=== PATIENT | male | born 1940 | race Two or more races ===

== ENCOUNTER 2021-03-10 08:00 | Outpatient (CLI) | payer OTHER | END 2021-03-10 08:30 | disposition home or self-care (01) | LOC: PPH VACUNA 08:00 | DX: Z23 Encounter for immunization (principal) ==

== ENCOUNTER 2021-10-16 08:00 | Outpatient (CLI) | payer OTHER | END 2021-10-16 08:30 | disposition home or self-care (01) | LOC: PPH VACUNA 08:00 | PROVIDERS: ATTEND Emergency Medicine Pediatric Emergency Medicine | DX: Z23 Encounter for immunization (principal) ==

== ENCOUNTER 2022-03-27 12:26 | Outpatient (CLI) | payer OTHER | END 2022-03-27 12:36 | disposition home or self-care (01) | LOC: PPH VACUNA 12:26 | PROVIDERS: ATTEND Emergency Medicine Pediatric Emergency Medicine | DX: Z23 Encounter for immunization (principal) ==

== ENCOUNTER 2023-06-15 19:42 | Inpatient (IN) | payer OTHER ==
[~2023-06-15] VITALS: Ht 172.7 cm; Wt 96.2 kg
[2023-06-15] MEDS ORDERED: ATORVASTATIN CA80 MG (20:10)
[2023-06-15] MEDS ORDERED: ZETIA10 MG (20:10)
[2023-06-15] MEDS ORDERED: ZESTRIL20 MG (20:10)
[2023-06-15] MEDS ORDERED: METFORMIN HCL500 M3 (20:10)
[2023-06-15] MEDS ORDERED: RYBELSUS3 MG (20:10)
[2023-06-15] MEDS ORDERED: PLAVIX75 MG (20:10)
[2023-06-15] MEDS ORDERED: CLONAZEPAM0.5 MG (20:11)
[2023-06-15] MEDS ORDERED: ASA81 MG (20:11)
[2023-06-15 20:40] LABS: HEMATOCRIT 37.9 % (39.0-48.0); HEMOGLOBIN 12.7 g/dL (13-16.00); MEAN CELL VOLUME 91.8 fL (80.0-100.00); MEAN CORPUSCULAR HEMOGLOBIN 30.8 pg (27.00-32.0); MEAN CORPUSCULAR HGB CONC 33.6 g/dl (32.0-36.0); PLATELET COUNT 346 K/uL (150-450); RED BLOOD COUNT 4.12 M/uL (4.00-6.00); RED CELL DISTRIBUTION WIDTH 13.9 % (11.5-14.5)
[2023-06-15 21:00] LABS: ALBUMIN 3.6 gm/dL (3.4-5.0); BILIRUBIN TOTAL 0.71 mg/dL (0.3-1.2); CALCIUM 10.2 mg/dL (8.5-10.1); CREATININE SERUM 1.53 mg/dL (0.70-1.30); GFR 43.68; GLOBULINA 3.3 G/DL (2.4-3.5); POTASSIUM 4.6 mEq/L (3.5-5.1); TOTAL PROTEIN 6.9 gm/dL (6.4-8.2)
[2023-06-15 22:08] LABS: INR 1.02; PROTHROMBIN TIME 10.7 SECONDS (9.0-11.5)
[2023-06-16 01:59] LABS: RH POSITIVE
[2023-06-16 07:44] LABS: ALBUMIN 3.2 gm/dL (3.4-5.0); ALKALINE PHOSPHATASE 48 U/L (50-136); ALT/SGPT 22 U/L (12-78); ANION GAP 12 (10.0-20.0); AST/SGOT 14 U/L (15-37); BILIRUBIN TOTAL 0.53 mg/dL (0.3-1.2); BILIRUBIN,CONJUGATED 0.17 mg/dL (0.0-0.2); BILIRUBIN,UNCONJUGATED 0.36 mg/dL (0.0-0.6); CALCIUM 9.5 mg/dL (8.5-10.1); CARBON DIOXIDE 26 mEq/L (21-32); CHLORIDE 109 mmol/L (98-107); CHOL HDL RATIO 2.5 (0-5.0); CHOLESTEROL 79 mg/dL (0-200); CREATININE SERUM 1.81 mg/dL (0.70-1.30); GFR 35.98; GLOBULINA 2.4 G/DL (2.4-3.5); GLUCOSE FASTING 125 mg/dL (65-100); HDL 31 mg/dl (40-60); LDL 24 mg/dl (0-130); POTASSIUM 5.67 mEq/L (3.5-5.1); SODIUM 141 mmol/L (136-145); TOTAL PROTEIN 5.6 gm/dL (6.4-8.2); TRIGLYCERIDES 120 mg/dL (0-150); VLDL 24 (0-39)
[2023-06-16 08:22] LABS: BLOOD UREA NITROGEN 91 mg/dL (7-18); BUN CREA RATIO 50 (7.0-25.0); C-REACTIVE PROTEIN < 0.29 MG/DL (0.00-0.29); OSMOLALITY SERUM 311 MOSM/KG (275-295)
[2023-06-16 08:38] LABS: INR 0.99; PARTIAL THROMBOPLASTIN TIME 23.6 SECONDS (22.0-34.0); PROTHROMBIN TIME 10.4 SECONDS (9.0-11.5)
[2023-06-16 08:49] LABS: HEMATOCRIT 32.6 % (39.0-48.0); HEMOGLOBIN 11.1 g/dL (13-16.00); MEAN CELL VOLUME 89.6 fL (80.0-100.00); MEAN CORPUSCULAR HEMOGLOBIN 30.6 pg (27.00-32.0); MEAN CORPUSCULAR HGB CONC 34.2 g/dl (32.0-36.0); PLATELET COUNT 272 K/uL (150-450); RED BLOOD COUNT 3.63 M/uL (4.00-6.00); RED CELL DISTRIBUTION WIDTH 13.9 % (11.5-14.5)
[2023-06-16 09:45] LABS: ERYTHROCYTE SEDIMENTATION RATE 14 mm/hr
[2023-06-17 07:28] LABS: HEMATOCRIT 28.2 % (39.0-48.0); HEMOGLOBIN 9.7 g/dL (13-16.00); MEAN CELL VOLUME 89.5 fL (80.0-100.00); MEAN CORPUSCULAR HEMOGLOBIN 30.9 pg (27.00-32.0); MEAN CORPUSCULAR HGB CONC 34.5 g/dl (32.0-36.0); PLATELET COUNT 225 K/uL (150-450); RED BLOOD COUNT 3.16 M/uL (4.00-6.00); RED CELL DISTRIBUTION WIDTH 13.8 % (11.5-14.5)
[2023-06-17 07:46] LABS: ALBUMIN 3.3 gm/dL (3.4-5.0); CALCIUM 9.3 mg/dL (8.5-10.1); CREATININE SERUM 1.93 mg/dL (0.70-1.30); GFR 33.41; PHOSPHOROUS 4.1 mg/dL (2.5-4.9); POTASSIUM 5.26 mEq/L (3.5-5.1)
[2023-06-18 05:53] LABS: ALBUMIN 3.1 gm/dL (3.4-5.0); BILIRUBIN TOTAL 0.51 mg/dL (0.3-1.2); CALCIUM 9.2 mg/dL (8.5-10.1); CREATININE SERUM 1.48 mg/dL (0.70-1.30); GFR 45.39; GLOBULINA 2.5 G/DL (2.4-3.5); POTASSIUM 4.78 mEq/L (3.5-5.1); TOTAL PROTEIN 5.6 gm/dL (6.4-8.2)
== END 2023-06-18 13:56 | disposition home or self-care (01) | DRG 378 ==
LOC: ER 19:42 → MEDJ 06-16 00:15
PROVIDERS: Emergency Medicine; General Practice; Internal Medicine; Internal Medicine Nephrology; ADMIT Internal Medicine; ATTEND Internal Medicine
PROC: 0DJ08ZZ Inspection of Upper Intestinal Tract, Via Natural or Artificial Opening Endoscopic (ICD-10-PCS; principal; 2023-06-17)
DX: K57.31 Diverticulosis of large intestine without perforation or abscess with bleeding (principal); N17.9 Acute kidney failure, unspecified; K25.9 Gastric ulcer, unspecified as acute or chronic, without hemorrhage or perforation; I12.9 Hypertensive chronic kidney disease with stage 1 through stage 4 chronic kidney disease, or unspecified chronic kidney disease; E11.22 Type 2 diabetes mellitus with diabetic chronic kidney disease; N18.9 Chronic kidney disease, unspecified; Z79.4 Long term (current) use of insulin; D64.9 Anemia, unspecified; I25.10 Atherosclerotic heart disease of native coronary artery without angina pectoris; I11.9 Hypertensive heart disease without heart failure